=== PATIENT | female | born 1930 | race African-American/Black ===

== ENCOUNTER 2017-02-01 15:29 | Inpatient (IN) | payer MEDICARE ==
[~2017-02-01] VITALS: Ht 167.6 cm; Wt 101.1 kg
[2017-02-01 17:27] LABS: BASOPHILS 0.2 % (0-2); EOSINOPHILS 2.8 % (0-7); HEMATOCRIT 29.2 % (36.0-48.0); HEMOGLOBIN 8.5 g/dL (12-16); IMMATURE GRANULOCYTES 0.5 % (0-5); LYMPHOCYTES 13.9 % (15-50); MCH 27.9 pg (26.0-34.0); MCHC 29.1 g/dL (31.0-37.0); MCV 95.7 fL (80.0-100.0); MONOCYTES 5.6 % (2-11); PLATELET COUNT 349 10x3/uL (130-400); RBC 3.05 10x6/uL (4.00-5.40); RDW 15.4 % (11.5-14.5); WBC 9.8 10x3/uL (4.8-10.8)
[2017-02-01 17:45] LABS: ALBUMIN 2.2 g/dL (3.4-5.0); ANION GAP 8.3 mmol/L (8-16); BILIRUBIN - TOTAL 0.32 mg/dL (0.2-1.3); CALCIUM 8.4 mg/dL (8.5-10.1); CARBON DIOXIDE 31.4 mmol/L (21.0-32.0); CREATININE - SERUM 1.7 mg/dL (0.6-1.3); POTASSIUM - SERUM 3.7 mmol/L (3.5-5.1); PROTEIN - SERUM 7.2 g/dL (6.4-8.2)
[2017-02-01 19:00] VITALS: BP 165/57
--- NOTE | 2017-02-01 20:32 | NUR ---
PT ARRIVED TO ROOM VIA STRETCHER WITH DAUGHTERS X 3 AT BEDSIDE. PT IS ALERT AND ORIENTED, BEDFAST, HX OF CVA WITH LT HEMIPARESIS AND SWELLING, LT HAND CONTRACTURED. PT IS REQUESTING SOMETHING TO EAT. PT HAS HER OWN WHEELCHAIR AT BEDSIDE WITH HER OWN O2 TANK ON THE BACK OF HER WHEELCHAIR. I HAVE PAGED RENAL FOR CLARIFICATION OF ORDERS AND PTS FAMILY REQUEST FOR SOMETHING FOR ANXIETY. FAMILY STATES PT HAS HAD INCREASED ANXIETY FOR MONTHS BUT DOES NOT CURRENTLY TAKE ANYTHING. PT IS MILDLY SOB AT THIS TIME, AND THIS MAY BE CONTRIBUTING TO HER ANXIETY. WILL CONTINUE TO MONITOR CLOSELY. PT IS CURRENTLY ON HER LEFT SIDE, HOB 25 DEGREES, CALL LIGHT IN REACH, SIDE RAILS X 2, BED LOW.
[2017-02-01] MEDS ORDERED: ALBUTEROL2.5 MG/3 M INH (21:47)
[2017-02-02] VITALS (12 sets, daily range): BP systolic 119–160; BP diastolic 43–62; Ht 167.6 cm; Wt 101.1 kg
--- NOTE | 2017-02-02 05:39 | NUR ---
PT RESTING COMFORTABLY, ROUSABLE TO VERBAL STIMULI, CALL LIGHT IN REACH, SIDE RAILS X 2, HOB 20 DEGREES. CONTINUE TO MONITOR.
--- NOTE | 2017-02-02 07:25 | NUR ---
PT LAYING TO LEFT SIDE SLEEPING. RR EVEN AND UNLABORED. NO S/S DISTRESS NOTED WILL CONT TO MONITOR
[2017-02-02 09:02] LABS: APTT 31.4 SECONDS (22.8-39.4); INR 1.18 (0.85-1.17); PROTIME 14.9 SECONDS (11.6-15.0)
--- NOTE | 2017-02-02 10:45 | NUR ---
PT BACK FROM PROCEDURE. PT IS LETHARGIC BUT ARROUSES TO VOICE. DENIES ANY NEEDS OR PAIN. VS ARE WNL. WILL CONT TO MONITOR.
--- NOTE | 2017-02-02 12:31 | NUR ---
PT HAS ALLERGY TO CEPHALAXIN. ORDERED TO RECEIVE ROCEPHIN. PAGED JANENE RENAL ACTUARIAL INTERN.
--- NOTE | 2017-02-02 16:48 | NUR ---
PT ACCIDENTALLY PULLED OUT PIV. CATH TIP IS INTACT. I ATTEMPTED TO SITE X2 STICKS NO SUCCESS. PAMELA VAS ACCESS ALREADY GONE FOR THE DAY. WILL ASK JIGSAW OPERATOR TO ATTEMPT.
--- NOTE | 2017-02-02 17:35 | NUR ---
Patient Name: MIKAYLA GALEANA Admission Status: ER Accout number: [id number] Admission Date: 02-01-2017 : 1930 Admission Diagnosis: Attending: SAMMIE Current LOS: 1 Anticipated DC Date: 02-03-2017 Planned Disposition: Nursing Facility ANSHUL Cert Primary Insurance: MEDICARE A & B PLANNED EXTERNAL PROVIDER: [facility], [facility] MEDICAID BED Discharge Planning Comments: * Is the patient Alert and Oriented? Yes 0 * How many steps to enter\\exit or inside your home? NONE 0 * PCP [facility] 0 * Pharmacy [facility] 0 * Preadmission Environment Detention Custodial 0 * Facility Name [facility] 0 * ADLs Total Dependent 0 * Equipment Other Oxygen Wheelchair 0 * Other Equipment ALL MEDICAL EQUIPMENT PROVIDED BY FACILITY 0 * List name and contact numbers for known caregivers / representatives who currently or will assist patient after discharge: JASON SERVIN DTR/RISHI, MONICA PENAR, 0 * Community resources currently utilized None 0 * Please name any agencies selected above. NONE 0 * Additional services required to return to the preadmission environment? No 0 * Can the patient safely return to the preadmission environment? Yes 0 * Has this patient been hospitalized within the prior 30 days at any hospital? No [address] VIZCARRA WHO PROVIDED ORDER FOR DISCHARGE PLANNING WITH PROJECTED DISCHARGE OF 02-03-17. JANIS MET WITH PT'S DAUGHTER, ELLIS, IN ROOM. PT WAS IN PROCEDURE. ELLIS REPORTS PT IN [facility] AT [facility] FOR THE PAST 5 YEARS AND WILL RETURN THERE AT DISCHARGE. ELLIS REPORTS THAT HER SISTER HAS SOME ISSUES WITH THE FACILITY AND ASKED IF CM WAS FROM THE STATE COMPLAINT AGENCY. CM EXPLAINED CM ROLE AND EMPLOYMENT AT [employer]. CM ASKED IF CM COULD ASSIST WITH REPORTING ANY COMPLAINTS, ELLIS STATED CM WILL HAVE TO TALK TO GLORIA WHO PLANS TO BE HERE LATER TODAY. AFTER PT ARRIVED BACK IN ROOM, JANIS DISCUSSED DISCHARGE PLANNING WITH PT; PT PLANS TO RETURN "HOME" TO [facility]. PT REPORTS HAVING NO COMPLAINTS ABOUT HER CARE IN THE FACILITY. CM SPOKE TO KEEGAN, CLINICAL COORDINATOR FOR [facility] WHO CHECKED WITH FACILITY WHO WILL ACCEPT PT BACK AT DISCHARGE. JANIS RECEIVED CALL FROM GLORIA SERVIN DTR, WHO REPORTS THAT SHE HAS NO COMPLAINTS REGARDING PT'S CARE AT [facility]. CM OFFERED CLINICAL LIAISON'S NUMBER FOR [facility], DECLINED BY GLORIA. GLORIA DID ACCEPT CM'S NUMBER. GLORIA IS NOT MOVING PT AND PLANS FOR PT TO RETURN TO [facility] AT DISCHARGE. FOR DISCHARGE, NURSE REPORT TO BE CALLED TO [facility], ; FAX DISCHARGE INFORMATION TO [facility] AT [phone]. PT TO TRANSPORT VIA AMBULANCE IF UNABLE TO SIT SAFETLY ERECT IN WHEEL CHAIR VAN FOR THE TWO HOUR TRIP BACK TO THE [facility]. Operations Management Professionals: Mauricio Al
--- NOTE | 2017-02-02 18:10 | NUR ---
PT SITTING UP IN BED SLEEPING NO S/S DISTRESS RR EVEN AND UNLABORED.
--- NOTE | 2017-02-02 22:21 | NUR ---
PT LYING IN BED, AWAKE, ALERT, ORIENTED, DENIES ANY NEEDS. PT HAS JUST RECEIVED A BED BATH, LINEN CHANGE, AND GOWN CHANGE. PT IS IN NO ACUTE DISTRESS AND RESTING COMFORTABLY. CONTINUE TO MONITOR CLOSELY.
[2017-02-03] VITALS: BP 111/37
[2017-02-03 04:00] VITALS: BP 133/45
--- NOTE | 2017-02-03 04:36 | NUR ---
PT HAS C/O GENERALIZED ABDOMINAL PAIN, MOSTLY R/T CONSTIPATION. PT IS REQUESTING TX FOR THIS ABDOMINAL PAIN. PT HAS A HX OF BOWEL BLOCKAGE AND CHRONIC CONSTIPATION. WILL DISCUSS WITH DAYSHIFT NURSE FOR FURTHER ORDERS. PT CURRENTLY LYING IN BED, RESTING COMFORTABLY, EYES CLOSED, RESPIRATIONS EVEN AND UNLABORED. CONTINUE TO MONITOR CLOSELY.
[2017-02-03 05:23] LABS: BASOPHILS 0.1 % (0-2); EOSINOPHILS 2.8 % (0-7); HEMATOCRIT 25.3 % (36.0-48.0); IMMATURE GRANULOCYTES 0.4 % (0-5); LYMPHOCYTES 14.2 % (15-50); MCH 28.4 pg (26.0-34.0); MCHC 29.6 g/dL (31.0-37.0); MCV 95.8 fL (80.0-100.0); MEAN PLATELET VOLUME 8.7 fL (7.4-10.4); MONOCYTES 7.2 % (2-11); NEUTROPHILS 75.3 % (40-80); PLATELET COUNT 299 10x3/uL (130-400); RBC 2.64 10x6/uL (4.00-5.40); RDW 15.4 % (11.5-14.5); WBC 7.8 10x3/uL (4.8-10.8)
[2017-02-03 05:24] LABS: HEMOGLOBIN 7.5 g/dL (12-16)
[2017-02-03 05:31] LABS: ANION GAP 6.5 mmol/L (8-16); CALCIUM 7.6 mg/dL (8.5-10.1); CARBON DIOXIDE 33.9 mmol/L (21.0-32.0); CREATININE - SERUM 1.8 mg/dL (0.6-1.3); MAGNESIUM - SERUM 1.6 mg/dL (1.8-2.4); PHOSPHOROUS 3.2 mg/dL (2.5-4.9); POTASSIUM - SERUM 3.4 mmol/L (3.5-5.1)
--- NOTE | 2017-02-03 07:08 | NUR ---
PT SITTING UP IN BED RECEIVING BREATHING TX, DENIES ANY NEEDS AT THIS TIME WILL CONT TO MONITOR
[2017-02-03 08:05] LABS: % SATURATION 22 % (15-55); IRON 27 ug/dl (35-150); TOTAL IRON BIND CAPACITY 120 ug/dl (260-445); UNSAT IRON BIND CAPACITY 93 ug/dl (150-375)
[2017-02-03 08:20] VITALS: BP 129/48
--- NOTE | 2017-02-03 08:42 | NUR ---
BLADDER SCANNER ON THE FLOOR IS AND WE DO NOT HAVE DEGREASING SOLUTION RECLAIMER. CALLED [employer] TO ASK FOR ANOTHER DEGREASING SOLUTION RECLAIMER AND IF NOT THEN WE NEED ANOTHER SCANNER. THEY ARE SUPPOSED TO CALL BACK. IN ORDER TO COMPLETE UA AND CULTURE WE NEED BLADDER SCANNER TO SEE IF HILL IS NEEDED.
--- NOTE | 2017-02-03 08:44 | NUR ---
PAMELA VAS NURSE SITED PT TO R UPPER FA 20 G X1 STICK WITH ULTRASOUND MACHINE ASSIST. DSNG DRY INTACT SWAB CAPS IN USE. INFUSING WITH NO PROBLEMS.
--- NOTE | 2017-02-03 09:49 | NUR ---
SPOKE WITH THE HOUSE SUP RAFAEL ABOUT NOT HAVING BLADDER SCANNER. ELADIO FROM [employer] SAID THAT WOMENS AND REHAB'S WERE BROKEN AND THEY HAD NO IRONER SOCK. RAFAEL SAID TO CALL ER AND SEE IF THEY HAD ONE. THEY SAID THAT IT IS MISSING AT THE MOMENT THEY WOULD LOOK FOR IT AND GET BACK TO ME.
[2017-02-03 12:35] VITALS: BP 129/52
--- NOTE | 2017-02-03 13:47 | NUR ---
16 F HILL WAS PLACED BY ULYSSES BUSH STERILE TECHNIQUE INITIATED. 10 CC STERILE FLUID INSTILLED INTO BALLOON. IMMEDIATE URINE RETURN. URINE SPECIMEN COLLECTED FROM TUBE. PT TOLERATED WELL.
[2017-02-03 15:05] LABS: APPEARANCE CLEAR (CLEAR); COLOR YELLOW (YELLOW)
[2017-02-03 15:06] VITALS: BP 141/51
[2017-02-03 15:06] LABS: BILIRUBIN NEGATIVE (NEGATIVE); GLUCOSE NEGATIVE (NEGATIVE); KETONE NEGATIVE (NEGATIVE); LEUKOCYTE ESTERASE 1+ (NEGATIVE); NITRITE NEGATIVE (NEGATIVE); PROTEIN 1+ mg/dL (NEGATIVE); SPECIFIC GRAVITY 1.015 (1.005-1.020); UROBILINOGEN NORMAL (NORMAL)
[2017-02-03 15:07] LABS: RED CELLS - URINE 0-5 /hpf (0-5); WHITE CELLS - URINE 0-5 /hpf (0-5)
[2017-02-03 15:08] LABS: BACTERIA FEW /hpf (NONE SEEN); EPITHELIAL CELLS 0-5 /hpf (0-5)
--- NOTE | 2017-02-03 16:21 | NUR ---
Patient Name: MIKAYLA GALEANA Encounter No: [id number] : 1930 Primary Insurance: MEDICARE A & B Anticipated DC Date: 02-03-2017 Planned Disposition: Nursing Facility [facility] Cert External Planned Provider: [facility], LONGTERM CARE MEDICAID BED DCP follow-up note: CM RECEIVED CALL FROM SHENA SERVIN, DAUGHTER, WHO ASKED TO SEE CM IN ROOM. CM MET WITH PT AND 4 OF HER CHILDREN. SHENA REPORTS SHE HAS SOME ISSUES WITH [facility], BUT CHOICES FOR MOVING PT IN [place] ARE VERY LIMITED. THEY ARE THINKING OF CALLING STATE BUT REPORT THAT IN THE PAST, WHEN STATE SHOWS UP, THE DETENTION GETS THEIR ACT TOGETHER AND NOTHING HAPPENS. CM DISCUSSED MOVING PT, FAMILY IS NOT WILLING TO MOVE PT AT THIS TIME, REPORTS PLAN TO RETURN TO [facility] AT DISCHARGE. CM PROVIDED SHENA WITH CLINICAL LIAISON KEEGAN CANNON'S CARD FOR THE FACILITY, ENCOURAGED HER TO REPORT COMPLAINTS TO OFFICE OF LONGTERM CARE AND IF THEY DECIDE NOT TO, TO AT LEAST TALK TO KEEGAN TO SEE IF ANYTHING CAN BE DONE FROM THE FACILITY TO MAKE THINGS BETTER FOR THE PT. FAMILY THANKED FOR ASSISTANCE, IMPORTANT MESSAGE FROM MEDICARE PROVIDED AND EXPLAINED. FOR DISCHARGE, NURSE REPORT TO BE CALLED TO [facility], ; FAX DISCHARGE INFORMATION TO [facility] AT [phone]. PT TO TRANSPORT VIA AMBULANCE IF UNABLE TO SIT SAFETLY ERECT IN WHEEL CHAIR VAN FOR THE TWO HOUR TRIP BACK TO THE DETENTION. Billet Header: Mauricio Al
--- NOTE | 2017-02-03 17:15 | NUR ---
PT CO SOB AND REQUESTING BREATHING TX. NEXT BREATHING TX ISNT UNTIL 1900. PT FAMILY MEMBER IS SAYING PT "WILL UNLESS SHE RECEIVES TX NOW" HER O2 SATS ARE 99% RR ARE UNLABORED. 1730- CALLED TO PT ROOM AGAIN STILL CO SOB. RR ARE NOW 28 USE OF ACCESSORY MUSCLES AND O2 SATS ARE STILL 99%. PAGED DR BELLMAN CAPTAIN DR GANN FOR PRN BREATHING TX. WILL ORDER. AND PAGE RESPIRATORY AGAIN
--- NOTE | 2017-02-03 17:43 | NUR ---
PT SON IS IN THE ROOM VERY ANGRY. DEMANDING FOR PT TO HAVE BREATHING TREATMENT "NOW" EXPLAINED TO PT AND PT SON THAT WE HAD TO CALL THE DR TO GET ADDITIONAL BREATHING TX ORDER. AND WE ARE JUST WAITING ON PHARM TO VERIFY AND FOR RESPIRATORY TO GIVE. PT SON CALLED HIS SISTER (RISHI). GLORIA DAUGHTER CALLED HOSPITAL AND SAID THAT HER BROTHER SAID "MY MOTHER IS VERY SOB AND IS DYING BECAUSE THEY WONT GIVE HER A BREATHING TX". EXPLAINED TO DAUGHTER THE SITUATION. SHE VERBALIZED UNDERSTANDING. SHE SAID TO CALL HER IF WE HAD ANY PROBLEM.
--- NOTE | 2017-02-03 18:36 | NUR ---
PT SITTING UP IN BED DENIES ANY NEEDS WATCHING TV
--- NOTE | 2017-02-03 19:15 | NUR ---
RECEIVED REPORT, WILL ASSUME CARE OF PT, PT DENIES ANY NEEDS, BED IS LOW, SRX2, WILL CONTINUE PLAN OF CARE
[2017-02-03 20:00] VITALS: BP 129/45
[2017-02-04 04:00] VITALS: BP 144/45
--- NOTE | 2017-02-04 04:20 | NUR ---
ASSESSMENT COMPLETE, SEE FLOWSHEET, PT SLEEPING, BED IS LOW, SRX2, CALL LIGHT IN REACH, MAIL CARRIER TECHNICIAN GAVE TOTAL BEDBATH/LINEN CHANGE, WILL CONTINUE PLAN OF CARE
[2017-02-04 05:27] LABS: BASOPHILS 0.1 % (0-2); HEMATOCRIT 24.6 % (36.0-48.0); IMMATURE GRANULOCYTES 0.4 % (0-5); LYMPHOCYTES 16.8 % (15-50); MCH 28.2 pg (26.0-34.0); MCHC 29.7 g/dL (31.0-37.0); MEAN PLATELET VOLUME 9.1 fL (7.4-10.4); NEUTROPHILS 71.7 % (40-80); PLATELET COUNT 309 10x3/uL (130-400); RBC 2.59 10x6/uL (4.00-5.40); RDW 15.4 % (11.5-14.5); WBC 7.7 10x3/uL (4.8-10.8)
[2017-02-04 05:28] LABS: HEMOGLOBIN 7.3 g/dL (12-16)
[2017-02-04 05:48] LABS: ALBUMIN 1.7 g/dL (3.4-5.0); BILIRUBIN - TOTAL 0.2 mg/dL (0.2-1.3); CALCIUM 7.8 mg/dL (8.5-10.1); CARBON DIOXIDE 33.7 mmol/L (21.0-32.0); CREATININE - SERUM 1.7 mg/dL (0.6-1.3); MAGNESIUM - SERUM 1.9 mg/dL (1.8-2.4); PHOSPHOROUS 2.4 mg/dL (2.5-4.9); POTASSIUM - SERUM 3.7 mmol/L (3.5-5.1)
--- NOTE | 2017-02-04 07:12 | NUR ---
PT SITTING UP IN BED SLEEPING ARROUSES EASILY. DENIES NEEDS WILL CONT TO MONITOR
[2017-02-04 08:04] VITALS: BP 126/44
[2017-02-04 08:16] LABS: FOLATE (FOLIC ACID) - SERUM 10.7 ng/mL (>3.0)
--- NOTE | 2017-02-04 10:26 | NUR ---
PT ORDERED TO RECEIVE 2 UNITS OF PACKED RED BLOOD CELLS TODAY. WENT IN TO GET CONSENT SIGNED. PLACED ON THE CHART. PT PIV IN R UPPER FA HAS INFILTRATED. DC WITH CATH TIP INTACT. CALLED ER, SPOKE WITH RICHAR TO SEE IF SOMEONE COULD TRY AN IV, THEY ARE SENDING SOMEONE.
--- NOTE | 2017-02-04 10:50 | NUR ---
ER NURSE SITED PT TO R AC 18G X1 STICK. IV IRON INFUSING WITHOUT ANY PROBLEMS, ONCE IRON IS FINISHED WILL GO START FIRST UNIT OF PRBC
[2017-02-04 12:00] VITALS: BP 121/48
--- NOTE | 2017-02-04 14:00 | NUR ---
FIRST UNIT OF PRBC READY TO BE INFUSED. ORDER OBTAINED AND CONSENT IS SIGNED AND PLACED ON CHART. PRE TRANSFUSION VS ARE WNL WITH NORMAL LIMITS OF PT. FIRST UNIT OF PRBC STARTED TO TRANSFUSE TO R UPPER ARM 18G PIV WITH NO PROBLEMS. NO CURRENT S/S TRANSFUSION REACTION. WILL CONT TO CLOSELY MONITOR PT
--- NOTE | 2017-02-04 14:26 | NUR ---
1410- 10 MINS INTO PT FIRST PRBC TRANSFUSION. PIV INFILTRATED AGAIN. DC WITH CATH TIP INTACT. ATTEMPTED TO SITE PT TO R FA 20G X1 STICK, BLOOD RETURN WHEN FLUSHED VEIN BLEW. CALLED ICU AND SPOKE WITH GENE HE IS COMING TO ATTEMPT TO RESITE.
--- NOTE | 2017-02-04 14:47 | NUR ---
GENE RN ATTEMPTED TO STICK PT X2 TIMES NO SUCCESS. PAGING DR GANN CLEANER WINDOW TO SEE WHAT WE NEED TO DO ABOUT LINE.
--- NOTE | 2017-02-04 15:12 | NUR ---
SPOKE WITH DR VELOZ ABOUT NOT BEING ABLE TO GET LINE IN PT. HE SAID TO CONSULT SURGERY FOR CVL PLACEMENT. DONE.
--- NOTE | 2017-02-04 15:31 | NUR ---
RETURNED PRBC TO THE BLOOD BANK. BLOOD WILL BE OLD BY THE TIME CVL GETS PLACED.
[2017-02-04 16:00] VITALS: BP 139/61
--- NOTE | 2017-02-04 17:16 | NUR ---
DR BEDOYA PLACED CVL R IJ AT BEDSIDE. STERILE TECHNIQUE INITIATED. DRESSING PLACED AND ADHERED TO SKIN SWAB CAPS IN USE. STAT CHEST XR ORDERED.
--- NOTE | 2017-02-04 17:41 | NUR ---
PT C/O SOB FROM HAVING TO LAY DOWN DURING CVL PLACEMENT. TRIED EXPLAINING TO PT THAT HER 02 SATS ARE 99-100% ON 4L NC, HER RR ARE 18 APPEARS TO BE IN NO S/S DISTRESS. SHE HAS PLEURAL EFFUSION THAT IS MOST LIKELY THE CULPRIT. PT REQUESTING BREATHING TX. I HAVE SPOKEN WITH MICAELA [facility] THERAPIST AND HE IS ON HIS WAY CHRISTOPHER TO BRING IT TO PT. AWAITING RESULTS OF STAT CHEST XRAY TO START PRBC. PT DENIES ANY OTHER NEEDS
--- NOTE | 2017-02-04 18:49 | NUR ---
CVL IS IN PLACE AND ABLE TO HANG FIRST UNIT OF PRBC NOW. FIRST UNIT STARTED. PRE TRANSFUSION VS ARE WNL PRBC INFUSING TO R IJ CVL WITHOUT ANY ISSUES. WILL CONT TO CLOSELY MONITOR
--- NOTE | 2017-02-04 19:11 | NUR ---
PT PRBC STILL INFUSING TO R IJ CVL WITHOUT ANY PROBLEMS. NO S/S DISTRESS FROM PT OR S/S TRANSFUSION REACTION. VS ARE WNL. GAVE REPORT TO JANINE CHEESE CUTTER NURSE.
--- NOTE | 2017-02-04 19:45 | NUR ---
RESTLESS. CALLING OUT WITH SOME CONFUSION. NEEDING FREQUENT REORIENTATION TO SITUATION. CURRENTLY RECIEVING UNIT #1 OF 2 PRBCS TO BE GIVEN. VSS AND BEING MONITORED. BLOOD INFUSING TO RIGHT IJ CVL. O2 @ 4L/NC WITH RESPS EVEN/NONLABORED. SEE ASSESSMENT. CPOC.
[2017-02-04 20:00] VITALS: BP 146/59
--- NOTE | 2017-02-04 21:30 | NUR ---
COMPLETTION OF 1ST UNIT OF BLOOD AT 2114. BEDTIME MEDS GIVEN. FSBS 88, PROVIDED PT WITH SNACK AND MILK. WILL MONITOR.
[2017-02-05 02:00] VITALS: BP 139/46
--- NOTE | 2017-02-05 05:20 | NUR ---
PT RECIEVED BOTH ORDERED UNITS OF PRBCS THIS SHIFT. SHE SLEPT WELL WHILE 2ND UNIT ADMINISTERED. NO FURTHER CALLING OUT OR C/O BEING SOB AND WANTING EXTRA BREATHING TREATMENTS. MONITOR AND CPOC.
[2017-02-05 06:16] LABS: BASOPHILS 0.1 % (0-2); EOSINOPHILS 2.5 % (0-7); IMMATURE GRANULOCYTES 0.6 % (0-5); LYMPHOCYTES 11.9 % (15-50); MCH 29.1 pg (26.0-34.0); MCHC 31.3 g/dL (31.0-37.0); MONOCYTES 6.2 % (2-11); NEUTROPHILS 78.7 % (40-80); PLATELET COUNT 283 10x3/uL (130-400); RDW 15.1 % (11.5-14.5)
[2017-02-05 06:18] LABS: HEMATOCRIT 31.3 % (36.0-48.0); HEMOGLOBIN 9.8 g/dL (12-16); MCV 92.9 fL (80.0-100.0); RBC 3.37 10x6/uL (4.00-5.40); WBC 10.2 10x3/uL (4.8-10.8)
[2017-02-05 06:29] LABS: ANION GAP 8.9 mmol/L (8-16); CARBON DIOXIDE 32.9 mmol/L (21.0-32.0); CREATININE - SERUM 1.7 mg/dL (0.6-1.3); POTASSIUM - SERUM 3.8 mmol/L (3.5-5.1)
--- NOTE | 2017-02-05 07:18 | NUR ---
AM ROUNDS- PT IN BED, WITH EYES CLOSED, BED LOW AND WHEELS LOCKED. BEDSIDE RAILS X2, CALL LIGHT IN REACH, TELEMETRY SHOWING SR 81. PT ON 4L NC, RT IJ INFUSING AT 40CC/H. NAD NOTED, WILL CONTINUE TO MONITOR.
[2017-02-05 08:19] VITALS: BP 144/46
--- NOTE | 2017-02-05 08:43 | NUR ---
AM MEDS GIVEN, PT HAD NO TROUBLE SWALLOWING. PT IN BED, DENIES ANY NEEDS AT THIS TIME. CALL LIGHT IN REACH, NAD NOTED, WILL CONTINUE TO MONTIOR.
--- NOTE | 2017-02-05 10:53 | NUR ---
LINEN CHANGE PER CHANGE ANALYST. PT DENIES ANY NEEDS AT THIS TIME. CALL LIGHT IN REACH, NAD NOTED, WILL CONTINUE TO MONITOR.
--- NOTE | 2017-02-05 11:00 | NUR ---
BLOOD SUGAR OF 183, 2UNITS OF HUMULIN GIVEN PER S/S TO RT ARM. PT DENIES ANY NEEDS AT THIS TIME, CALL LIGHT IN REACH, NAD NOTED, WILL CONTINUE TO MONITOR.
[2017-02-05 11:31] VITALS: BP 130/49
--- NOTE | 2017-02-05 14:00 | NUR ---
PT'S FAMILY ASKING IF PT CAN BE TRANSFERED TO CHAIR, WILL [facility] AND ASK IF THEY CAN TRANSFER PT. 1415- TALKED TO MONROE FROM PHYSICAL THERAPY INFORMED THAT PT WANTS TO BE TRANSFER PT TO CHAIR. MONROE FROM PHYSICAL THERAPY STATED THAT PT IS A MATT LIFT AND THAT THEY DONT DO MATT LIFTS HERE. MONROE STATED THAT HE WOULD CHECK WITH [facility] TOMORROW TO SEE IF THEY CAN DO SOMETHING ELSE FOR PT. WILL NOTIFY PT AND FAMILY.
[2017-02-05 15:12] VITALS: BP 128/54
--- NOTE | 2017-02-05 16:07 | NUR ---
BLOOD SUGAR OF 140, NO COVERAGE NEEDED PER S/S. PT IN BED, REQUESTED A CUP OF ICE WATER. WILL PROVIDED PT WITH ICE WATER, NAD NOTED, CALL LIGHT IN REACH, WILL CONTINUE TO MONITOR.
--- NOTE | 2017-02-05 19:30 | NUR ---
RECEIVED AWAKE/ALERT AND RESTING IN BED. DENIES PAIN OR DISCOMFORT. SR PER TELEMETRY. RIGHT IJTL WITH D5W @ 40ML/HR INFUSING. ON LOVENOX FOR DVT PREVENTION. O2 @ 4L/NC WITH NONLABORED RESPIRATIONS. HILL PATENT TO BEDSIDE DRAIN BAG. OLD CVA WITH LEFT SIDED WEAKNESS REQUIRING MAX ASSIST WITH ADLS AND MOBILITY. SEE ASSESSMENT, MONITOR AND CPOC.
[2017-02-06] VITALS: BP 147/46
[2017-02-06 04:00] VITALS: BP 132/47
--- NOTE | 2017-02-06 04:58 | NUR ---
RESTING WITH EYES CLOSED. RESPS EVEN/NONLABORED. IVF INFUSING TO RIGHT IJTL. HILL PATENT TO BEDSIDE DRAIN BAG. MONITOR AND CPOC.
[2017-02-06 05:30] LABS: BASOPHILS 0.1 % (0-2); EOSINOPHILS 2.9 % (0-7); HEMATOCRIT 32.8 % (36.0-48.0); HEMOGLOBIN 10.1 g/dL (12-16); IMMATURE GRANULOCYTES 0.8 % (0-5); MCH 28.5 pg (26.0-34.0); MCHC 30.8 g/dL (31.0-37.0); MCV 92.7 fL (80.0-100.0); MEAN PLATELET VOLUME 8.9 fL (7.4-10.4); NEUTROPHILS 75.2 % (40-80); PLATELET COUNT 267 10x3/uL (130-400); RBC 3.54 10x6/uL (4.00-5.40); RDW 15.1 % (11.5-14.5); WBC 8.6 10x3/uL (4.8-10.8)
[2017-02-06 05:42] LABS: ANION GAP 6.6 mmol/L (8-16); CALCIUM 7.9 mg/dL (8.5-10.1); CREATININE - SERUM 1.6 mg/dL (0.6-1.3); POTASSIUM - SERUM 3.6 mmol/L (3.5-5.1)
--- NOTE | 2017-02-06 07:14 | NUR ---
AM ROUNDS- PT IN BED, REQUESTED HER DENTURES TO BE CLEANED AND GIVEN TO HER. PT DENIES ANY OTHER NEEDS AT THIS TIME. CALL LIGHT IN REACH, NAD NOTED, WILL CONTINUE TO MONITOR.
[2017-02-06 07:55] VITALS: BP 121/49
--- NOTE | 2017-02-06 08:04 | NUR ---
AM MEDS GIVEN AND A DOSE OF MIRALAX. PT IN BED, EATING BREAKFAST. DENIES ANY NEEDS AT THIS TIME. CALL LIGHT IN REACH, BED LOW AND WHEELS LOCKED, NAD NOTED, WILL CONTINUE TO MONITOR.
--- NOTE | 2017-02-06 11:28 | NUR ---
BLOOD SUGAR OF 126, NO COVERAGE NEEDED PER S/S. PT IN BED, STATES THAT SHE WANTS A BREATHING TREATMENT. WILL CALL [facility] AND INFORM THEM ABOUT PT'S REQUES. CALL LIGHT IN REACH, NAD NOTED, WILL CONTINUE TO MONITOR.
[2017-02-06 12:50] VITALS: BP 125/68
--- NOTE | 2017-02-06 13:21 | NUR ---
Nutrition follow-up: Diet: ADA consistent CHO PO intake 75-100% of meals Labs reviewed WT: 222# +BM RDN following.
--- NOTE | 2017-02-06 13:43 | NUR ---
GINETTE Mcclellan [phone] [place] [phone] ALEKSANDRA. WANT TO BE CONTACTED BY DOCTOR MAKING ROUNDS IN THE AM.
[2017-02-06 16:27] VITALS: BP 131/55
--- NOTE | 2017-02-06 19:25 | NUR ---
RECIEVED SHIFT REPORT. PT IS LYING IN BED. ALERT AND ORIENTED AND ABLE TO VERBALIZE NEEDS. IV IS PATENT AND FLUIDS ARE RUNNING PER ORDER. O2 @ 4 PER NASAL CANNULA. HILL IS DRAINING URINE BY GRAVITY. PT REQUIRES ASSISTANCE TURNING IN BED FOR COMFORT AND SKIN CARE. PT DENIES ANY PAIN AT THIS TIME. ISOLATION PRECAUTIONS IN PLACE. NO NEEDS ARE VERBALIZED AT THIS TIME. WILL CONTINUE TO MONITOR. SIDE RAILS ARE UP X 2. BED IS IN LOWEST POSITION. CALL LIGHT IS WITHIN REACH.
--- NOTE | 2017-02-06 21:19 | NUR ---
SHIFT ASSESSMENT COMPLETED. NIGHT MEDS GIVEN WITH NO PROBLEMS. PT RECIEVED NO INSULIN PER SLIDING SCALE FOR XYGA=761. PT REQUESTING PRN TRAZADONE FOR SLEEP. ADMINISTERED PER ORDER. NO FURTHER NEEDS VOICED AT THIS TIME. WILL MONITOR. SIDE RAILS X 2. BED LOW. CALL LIGHT IN REACH.
[2017-02-06 23:00] VITALS: BP 135/43
[2017-02-07 01:51] VITALS: BP 123/42
--- NOTE | 2017-02-07 03:27 | NUR ---
PT RESTING IN BED WITH NO DISTRESS. RESPIRATIONS ARE EVEN AND UNLABORED. SIDE RAILS X 2. BED IS LOW. CALL LIGHT IN REACH.
[2017-02-07 04:57] LABS: BASOPHILS 0.3 % (0-2); EOSINOPHILS 2.5 % (0-7); HEMATOCRIT 30.4 % (36.0-48.0); HEMOGLOBIN 9.3 g/dL (12-16); IMMATURE GRANULOCYTES 0.6 % (0-5); MCH 28.8 pg (26.0-34.0); MCHC 30.6 g/dL (31.0-37.0); MCV 94.1 fL (80.0-100.0); MEAN PLATELET VOLUME 9.3 fL (7.4-10.4); MONOCYTES 6.2 % (2-11); NEUTROPHILS 75.4 % (40-80); PLATELET COUNT 285 10x3/uL (130-400); RBC 3.23 10x6/uL (4.00-5.40); RDW 14.9 % (11.5-14.5); WBC 7.7 10x3/uL (4.8-10.8)
[2017-02-07 05:14] LABS: ANION GAP 4.5 mmol/L (8-16); CALCIUM 7.6 mg/dL (8.5-10.1); CARBON DIOXIDE 38.7 mmol/L (21.0-32.0); CREATININE - SERUM 1.6 mg/dL (0.6-1.3); MAGNESIUM - SERUM 1.3 mg/dL (1.8-2.4); PHOSPHOROUS 2.4 mg/dL (2.5-4.9); POTASSIUM - SERUM 3.2 mmol/L (3.5-5.1)
[2017-02-07 05:36] VITALS: BP 126/48
--- NOTE | 2017-02-07 07:59 | NUR ---
AM ROUNDING DONE WITH PATIENT IN CONTACT ISOLATION. RIGHT IJ SEEN WITH D5W INFUSING AT 40 CC/HR. HILL CATH PATENT WITH CLEAR YELLOW URINE SEEN TO BAG. ON HEART MONITOR SHOWING SR, HR 87. PATIENT IS A DNR CODE STATUS. ON 4L PER NC. BED ALARM IS SET. WILL CPOC.
[2017-02-07 08:34] VITALS: BP 129/48
--- NOTE | 2017-02-07 10:17 | EC ---
PATIENT:MIKAYLA GALEANA DATE OF SERVICE: 02/03/17 SEX: F MEDICAL RECORD: [id number] DATE OF : [birth year] LOCATION:D.M2 D.210 AGE OF PATIENT: 86 ADMISSION DATE: 02/01/17 REFERRING PHYSICIAN: INTERPRETING PHYSICIAN: TI DOHERTY MD ECHOCARDIOGRAM REPORT ECHO CHARGES 4 ECHO COMPLETE CLINICAL DIAGNOSIS: SOB/EDEMA ECHOCARDIOGRAPHIC MEASUREMENTS (adult normal given) AC root (d.<3.7cm) 3.3 LV Septum d (<1.2 cm> 1.5 Valve Excursion 1.8 LV Septum (systole) 1.9 Left Atria (s.<4.0cm> 3.6 LVPW d(<1.2cm) 1.6 RV (d.<2.3cm) 3.8 LVPW (sytole) 2.0 LV diastole(<5.6CM) 4.8 MV E-F(>70mm/sec) LV systole 2.7 LVOT Diameter 1.7 MV exc.(>10mm) 1.9 Est.ejection fraction (50-75%) Pericardial Effusion N DOPPLER: LVIT A 73.0 E 105 LA RVSP 20 LVOT 102 AOP1/2T Asc. Ao 165 RVOT 90 RA PA 118 AV Gradient Peak 10.95 AV Mean 5.29 AV Area 1.5 MV Gradient Peak 4.59 MV Mean 1.69 MV Area COMMENTS: PA IS 118 CM/SEC OR 3.27 MMHG RVSP 20 [facility] Information Manager: Marvin VO Nurse Private Duty:1 Dr. Doherty TAPE# PACS TWO-DIMENSIONAL ECHOCARDIOGRAM WITH DOPPLER 1. Left ventricular chamber size is within normal limits. Left ventricular systolic function is normal. Overall ejection fraction is estimated at 55 percent. 2. Left atrium, right atrium, and right ventricular chamber sizes are within normal limits. 3. Valvular structures have normal structure and motion. 4. Doppler interrogation reveals mild mitral regurgitation, trace tricuspid regurgitation; no other valvular insufficiency or stenosis. Pulmonary artery systolic pressure is normal estimated at 20 millimeters of mercury. ECHOCARDIOGRAM REPORT [id number] MIKAYLA GALEANA 5. No evidence of pericardial effusion or left ventricular thrombus. TI DOHERTY MD at 1017 CC: [id number] DICTATION DATE: 02/04/17 1200 VICE PRESIDENT OF PROCUREMENT: BOBBY 02/06/17 1119 ADM IN [facility] [address] [phone]
[2017-02-07] MEDS ORDERED: FUROSEMIDE20 MG PO (11:12)
[2017-02-07 12:24] VITALS: BP 147/55
--- NOTE | 2017-02-07 12:36 | NUR ---
Patient Name: MIKAYLA GALEANA Encounter No: [id number] : 1930 Primary Insurance: MEDICARE A & B Anticipated DC Date: 02-07-2017 Planned Disposition: Nursing Facility AN[facility]UL Cert External Planned Provider: [facility], [facility] MEDICAID BED DCP follow-up note: CM RECEIVED DISCHARGE ORDER, RECEIVED CALL FROM PT'S DAUGHTER, CHRISTINA, WHO IS IN AGREEMENT WITH DISCHARGE BACK TO [facility], ASKED IF PT WAS ON LASIX. CM VERIFIED MEDICATIONS FOR DISCHARGE, CALLED CHRISTINA AT HOME WHO ADVISED THAT PT'S OTHER DAUGHTER, JASON, IS IN THE ROOM WITH PT. CM SPOKE TO JASON AND PT IN ROOM, NOTIFIED OF DISCHARGE MEDICATIONS; ALL IN AGREEMENT WITH DISCHARGE BACK TO [facility] TODAY. CM FAXED DISCHARGE INFORMATION TO [facility] AT [phone]. NURSE REPORT TO BE CALLED TO [facility], ; . PT TO TRANSPORT VIA AMBULANCE. Mail Processor: Mauricio Al
--- NOTE | 2017-02-07 12:54 | NUR ---
CALLED REPORT TO SHEREEN CARY TO [facility]. PATIENT WILL BE DISCHARGED VIA AMBULANCE AND PORTABLE OXYGEN.
--- NOTE | 2017-02-07 13:35 | NUR ---
LAST OF IV POTASSIUM HAS INFUSED. RIGHT IJ CVL HAS BEEN FLUSHED WELL WITH 10 CC OF NORMAL SALINE TO EACH PORT. WILL REMOVE CVL WHEN AMBULANCE IS CALLED AND WILL REMOVE HILL CATH AT THAT TIME. AWAITING FAMILY TO COME BACK ONTO FLOOR SO DISCHARGE INSTRUCTIONS MAY BE GIVEN TO PATIENT.
--- NOTE | 2017-02-07 14:14 | NUR ---
1404-CALLED DREW AT [facility] AND WAS TOLD THAT IT WOULD BE A BIT BEFORE PICKUP. I ASKED THAT SHE GIVE ME A COURTESY CALL I NEEDED TO TAKE OUT HER HILL CATH AND CENTRAL LINE. SHE SAID SHE WOULD. THIS IS RELAYED TO THE FAMILY.
--- NOTE | 2017-02-07 14:46 | NUR ---
HILL CATH REMOVED PAST BULB DEFLATION. CLEANED AGAIN FROM INCONT. OF STOOL.
--- NOTE | 2017-02-07 15:53 | NUR ---
CALLED DREW AT [facility] AGAIN. WAS TOLD THAT "WE ARE SO BUSY WITH EMERGENCY CALLS THAT IT MAY BE CLOSE TO 6". I CALLED [facility] TO NOTIFY THEM OF THE DELAY, I SPOKE WITH NOVA.
--- NOTE | 2017-02-07 18:18 | NUR ---
1814-RIGHT IJ CVL REMOVED WITH CATH TIP INTACT. PRESSURE HELD WITH CLEAN 2 X 2 AND OPISTE DRESSING PLACED. INSTRUCTED TO PATIENT TO LAY FLAT X 15 MIN. WILL FOLLOW.
--- NOTE | 2017-02-07 18:46 | NUR ---
CLEANED UP AGAIN FROM INCONT OF URINE AND STOOL.
--- NOTE | 2017-02-07 18:53 | NUR ---
PATIENT IS RECEIVED AN UPDRAFT TREATMENT AT THIS TIME. AMBULANCE IS HERE.
--- NOTE | 2017-02-07 18:53 | NUR ---
VERBAL AND WRITTEN DISCHARGES ARE GIVEN TO PATIENT. SHE REPORTS THAT SHE CAN NOT SIGN HER PAPERWORK. DISCHARGED VIA AMBULANCE AND STRETCHER.
--- NOTE | 2017-02-08 13:41 | NUR ---
Patient Name: MIKAYLA GALEANA Encounter No: [id number] : 1930 Primary Insurance: MEDICARE A & B Anticipated DC Date: 02-07-2017 Planned Disposition: Nursing Facility [facility] Cert External Planned Provider: [facility] LONG TERM C[facility] MEDICAID BED DCP follow-up note: CM RECEIVED CALL FROM PT'S DAUGHTER, SHENA SERVIN, WHO REPORTS THAT THE HALFWAY IS ONLY GIVING PT TWO MEDICATIONS LISTED ON THE DISCHARGE MEDICATION LIST WELL INSULIN THAT IS NOT. PT WAS NOT CONTINUED ON HER NORMAL DAILY MEDICATIONS AT THE HALFWAY. CM APOLOGIZED AND INFORMED SHENA THAT CM WILL CALL THE FACILITY TO SEE IF CM CAN ASSIST IN FIXING THE SITUATION. CM CALLED KEEGAN, CL[facility]ICAL LIAISON FOR [facility], , WHO CHECKED WITH THE HALFWAY AND WAS ADVISED THAT THE HALFWAY IS REPORTING HAVING NOT RECEIVED THE DISCHARGE ORDER. JANIS EXPLAINED THAT IT WAS INCLUDED IN FAX TO KEEGAN YESTERDAY AND IS GENERALLY INCLUDED IN THE DISCHARGE PACKET SENT TO THE HALFWAY; THE DISCHARGE ORDER STATES FOR PT TO "[facility]UME [facility]". KEEGAN ASKED FOR THIS ORDER TO BE FAXED TO [facility], . CM FAXED THE DISCHARGE ORDER TO THE [facility]. CM CALLED JASON SERVIN, , NOTIFIED OF ABOVE. CARRIE BALDERAS, CASE MANAGEMENT
== END 2017-02-07 19:19 | DRG 187 ==
LOC: D.ER 15:29 → D.M2 19:12
PROVIDERS: Internal Medicine Nephrology; Physician Assistant; Specialist; ADMIT Family Medicine
PROC: 0W9B3ZZ Drainage of Left Pleural Cavity, Percutaneous Approach (ICD-10-PCS; principal; 2017-02-02 11:18)
DX: J90 Pleural effusion, not elsewhere classified (principal); N18.4 Chronic kidney disease, stage 4 (severe); N39.0 Urinary tract infection, site not specified; E11.22 Type 2 diabetes mellitus with diabetic chronic kidney disease; I12.9 Hypertensive chronic kidney disease with stage 1 through stage 4 chronic kidney disease, or unspecified chronic kidney disease; F41.9 Anxiety disorder, unspecified; J98.4 Other disorders of lung; I25.10 Atherosclerotic heart disease of native coronary artery without angina pectoris; Z86.73 Personal history of transient ischemic attack (TIA), and cerebral infarction without residual deficits; K21.9 Gastro-esophageal reflux disease without esophagitis; D64.9 Anemia, unspecified

== ENCOUNTER 2017-03-27 10:39 | Outpatient (CLI) | payer MEDICARE ==
[~2017-03-27] VITALS: Ht 167.6 cm; Wt 94.1 kg
[~2017-03-27 10:39] MED LIST: ALBUTEROL2.5 MG/3 M INH; FUROSEMIDE20 MG PO
[2017-03-27] MEDS ORDERED: REMERON15 MG PO (12:37)
[2017-03-27] MEDS ORDERED: ALDACTONE25 MG PO (12:37)
[2017-03-27] MEDS ORDERED: NOVOLOG100 U/M1 SC (12:38)
[2017-03-27] MEDS ORDERED: PRINIVIL20 MG PO (12:38)
[2017-03-27] MEDS ORDERED: FUROSEMIDE40 MG PO (12:38)
[2017-03-27] MEDS ORDERED: FERROUS SULFAT325 MG PO (12:39)
[2017-03-27] MEDS ORDERED: CARDIZEM LA120 MG PO (12:39)
[2017-03-27] MEDS ORDERED: SYMBICORT 16010.2 GM INH (12:40)
[2017-03-27] MEDS ORDERED: LOPRESSOR25 MG PO (12:40)
[2017-03-27] MEDS ORDERED: ACETAMINOPHEN500 M1 PO (12:41)
[2017-03-27] MEDS ORDERED: CLARITIN 10 MG10 MG PO (12:41)
[2017-03-27] MEDS ORDERED: SINGULAIR10 MG PO (12:41)
[2017-03-27] MEDS ORDERED: MIRALAX17 GM PO (12:42)
[2017-03-27] MEDS ORDERED: DULCOLAX10 MG/SUPP RC (12:42)
[2017-03-27] MEDS ORDERED: VITAMIN B-1000 MCG/M IM (12:43)
[2017-03-27 13:02] VITALS: BP 166/52; Ht 167.6 cm; Wt 94.1 kg
[2017-03-27 14:25] LABS: BASOPHILS 0.2 % (0-2); EOSINOPHILS 3.8 % (0-7); IMMATURE GRANULOCYTES 0.5 % (0-5); LYMPHOCYTES 16.9 % (15-50); MCH 29.1 pg (26.0-34.0); MCHC 30.3 g/dL (31.0-37.0); MCV 95.9 fL (80.0-100.0); MEAN PLATELET VOLUME 9.3 fL (7.4-10.4); NEUTROPHILS 74.6 % (40-80); PLATELET COUNT 231 10x3/uL (130-400); RBC 3.44 10x6/uL (4.00-5.40); RDW 13.8 % (11.5-14.5); WBC 6.5 10x3/uL (4.8-10.8)
[2017-03-27 14:40] LABS: INR 1.07 (0.85-1.17); PROTIME 13.8 SECONDS (11.6-15.0)
[2017-03-27 14:41] LABS: APTT 28.4 SECONDS (22.8-39.4)
[2017-03-27 14:50] LABS: ANION GAP 14.3 mmol/L (8-16); CALCIUM 8.6 mg/dL (8.5-10.1); CARBON DIOXIDE 34.8 mmol/L (21.0-32.0); CREATININE - SERUM 1.5 mg/dL (0.6-1.3); POTASSIUM - SERUM 4.1 mmol/L (3.5-5.1)
--- NOTE | 2017-03-27 17:43 | NUR ---
8804 SEE POST PROCEDURE CHECKLIST FOR VITAL SIGNS.
[2017-03-27 20:28] LABS: PROTEIN - BODY FLUID 3.6 G/DL
== END 2017-03-27 17:30 | disposition home or self-care (01) ==
LOC: D.OPS 10:39 → D.CT 13:00 → D.OPS 13:00
PROVIDERS: General Practice
DX: J90 Pleural effusion, not elsewhere classified (principal); I12.9 Hypertensive chronic kidney disease with stage 1 through stage 4 chronic kidney disease, or unspecified chronic kidney disease; N18.9 Chronic kidney disease, unspecified; Z01.812 Encounter for preprocedural laboratory examination

== ENCOUNTER 2018-03-02 16:20 | Inpatient (IN) | payer MEDICARE ==
[~2018-03-02] VITALS: Ht 167.6 cm; Wt 89.5 kg
--- NOTE | ~2018-03-02 | PN ---
PATIENT:MIKAYLA GALEANA MEDICAL RECORD: [id number] LOCATION:[facility] D.210 ADMISSION DATE: 03/02/18 PROGRESS NOTE DATE OF SERVICE: 03/08/2018 SUBJECTIVE: This 87-year-old female, who was admitted for increasing shortness of breath. She was noted to have bilateral infiltrates and pleural effusion. The patient complains of shortness of breath still. There is no sputum production. There is no fever. Has hazy appearance in the left lower lobe. PHYSICAL EXAMINATION: GENERAL: Reveals an elderly female, who is in no acute distress. VITAL SIGNS: Temperature 100.2, heart rate of 62, respiratory rate of 24, blood pressure 101/35. SHEENT: Unremarkable. NECK: Supple. CHEST: Some mild crackles on coughing. No accessory muscle use. CARDIAC: Showed no jugular venous distention, murmur, or gallops. ABDOMEN: Benign. EXTREMITIES: Showed no clubbing, cyanosis, or edema. LABORATORY DATA: Lab exam showed white count of 5.3, hemoglobin 8.8. Chemistry is remarkable for creatinine of 2.2, BUN of 65, potassium is 5.1. ASSESSMENT: 1. Pneumonia. 2. Chronic lung disease. 3. Chronic kidney disease. 4. History of stroke. 5. Edema, rule out congestive heart failure. The patient may need echocardiogram for assessment. 6. Anemia, probably from chronic disease. PLAN: 1. Echocardiogram. 2. Trial of steroids if there is no cardiac etiology. 3. Continue DVT prophylaxis. TRANSINT:[id number] Voice Confirmation ID: [id number] DOCUMENT ID: [id number] TEDDY MOY at 1542 CC: [id number] DICTATION DATE: 03/08/18 1735 BAND AND CUFF CUTTER: 03/08/182023 ADM IN [place] [id number] [place] [address]
--- NOTE | ~2018-03-02 | CN ---
PATIENT NAME:MIKAYLA GALEANA MEDICAL RECORD: [id number] : 34 LOCATION:[facility] D.2102 ADMIT DATE: 03/02/18 ACCOUNT: [id number] CONSULTING PHYSICIAN: TABATHA BRODERICK MD REFERRING PHYSICIAN: AB MORALES MD DATE OF CONSULTATION: HISTORY OF PRESENT ILLNESS: An 87-year-old female with a history of hypertension, hyperlipidemia, status post CVA, transferred from [facility] with increasing shortness of breath, getting worse over the past 2-3 weeks by report. She was transferred here for possible CHF. Echocardiographic study done during this hospitalization shows normal LV function. Initially, she does have a pleural effusion on the left side, which abates typical for cardiomyopathy. We are asked to see her concerning her cardiovascular status. PAST MEDICAL HISTORY: Includes: 1. History of cerebrovascular disease. 2. Hypertension. 3. Hyperlipidemia. MEDICATIONS UPON TRANSFER: Include Lasix 40 every day, potassium supplementation, Zoloft 50 q.h.s., metoprolol 25 b.i.d., diltiazem 120 every day, Plavix 75 every day, Proventil 1 puff t.i.d. ALLERGIES: PENICILLIN, IBUPROFEN, KEFLEX, BACTRIM, TERAZOSIN. SOCIAL HISTORY: Lives in the [place] area. She is a nonsmoker, nondrinker. Good family support. REVIEW OF SYSTEMS: The patient reports easy bruising but reports no swollen glands. The patient reports no fever, no night sweats, no significant weight gain, no significant weight loss. No significant exercise tolerance. The patient reports no dry eyes, no irritation, no vision change. Patient reports no difficulty hearing and no ear pain. Patient reports no frequent nose bleeds or nose and sinus problems. Patient reports on arm pain on exertion. No shortness of breath while lying down. No history of heart murmur. Patient reports no cough, no wheezing or coughing up blood. Patient reports no abdominal pain, no vomiting. Normal appetite. No diarrhea and not vomiting blood. No nausea and no constipation. Patient reports no incontinence. No difficulty urinating. No hematuria. No increased frequency. Patient reports no muscle aches. No weakness, no arthralgias, no back pain. No swelling of the extremities. Patient reports no abnormal mole, no jaundice, no rashes. Reports no loss of consciousness. No weakness and no numbness. No seizures, dizziness, or headaches. The patient reports no depression, no sleep disturbance, feeling safe in a relationship and no alcohol abuse. Patient reports on fatigue. Reports no runny nose or sinus pressure. No itching, no hives, and no frequent sneezing. PHYSICAL EXAMINATION: GENERAL: Pleasant female in no acute distress. VITAL SIGNS: Blood pressure 142/46, pulse 79 and regular. HEENT: Normocephalic, atraumatic. NECK: No bruits noted. HEART: Regular. A II/ systolic ejection murmur. LUNGS: Diminished breath sounds on the left. CONSULT REPORT [id number] LISSETTMIKAYLA ABDOMEN: Soft, nontender. EXTREMITIES: Pulses are 2+. There is no edema. IMPRESSION: Marked dyspnea. LV function is normal. Blood pressure fairly well controlled. Given pleural effusion on the left, this will be somewhat atypical for a myopathic process. Agree with current management. TRANSINT:[id number] Voice Confirmation ID: [id number] DOCUMENT ID: [id number] TABATHA BRODERICK MD at 1254 CC: [id number] DICTATION DATE: 03/06/18 1500 RELIGION DEPARTMENT CHAIR: 03/06/18 1523 ADM IN [facility] [address] [place] [address]
--- NOTE | ~2018-03-02 | PN ---
PATIENT:MIKAYLA GALEANA MEDICAL RECORD: [id number] LOCATION:[facility] D.210 ADMISSION DATE: 03/02/18 PROGRESS NOTE DATE OF SERVICE: 03/09/2018 SUBJECTIVE: This is an 87-year-old female who has had history of chronic lung disease. The patient was admitted with increasing shortness of breath, acute respiratory failure with hypercapnia, and hypoxia. The patient was placed on BiPAP. The patient did well. She had repair pleural effusion, which was tapped. At this point, the patient complained of shortness of breath. She had blood gases obtained and she was noted to have acute respiratory failure with hypercapnia and was placed back on BiPAP. The patient is doing well on BiPAP now. There is no fever or chills. There is no chest pain. The patient is a lifelong smoker and currently smokes. PHYSICAL EXAMINATION: GENERAL: Reveals an elderly female patient, in no acute distress. VITAL SIGNS: Temperature 98.8, heart rate of 64, respiratory rate of 18, and saturation 99%. SHEENT: The patient is wearing a mask. NECK: Supple. CHEST: Shows mild crackles bilaterally. CARDIAC: Shows no jugular venous distention, murmur, or gallop. ABDOMEN: Benign with no tenderness or distention. EXTREMITIES: Show no clubbing, cyanosis, or edema. LABORATORY DATA: Showed white count of 5.6, hemoglobin 9.1, and platelet count is 142,000. Chemistry is remarkable for potassium 5, creatinine is 2.3, BUN is 58. Arterial blood gas; pH 7.35, pCO2 of 71, and pO2 of 136. ASSESSMENT: 1. Acute respiratory failure with hypercapnia. The patient is requiring BiPAP. She may need BiPAP at home. 2. Chronic obstructive pulmonary disease. The patient is on bronchodilators. We will add systemic steroids with Solu-Medrol. 3. Acute kidney injury. We will obtain reports of echocardiogram to see if the patient has congestive heart failure, left ventricular dysfunction. PLAN: 1. BiPAP. 2. Bronchodilator and Solu-Medrol. 3. Check report of echocardiogram. TRANSINT:[id number] Voice Confirmation ID: [id number] DOCUMENT ID: [id number] PROGRESS NOTE [id number] MIKAYLA GALEANA TEDDY MOY at 6375 CC: [id number] DICTATION DATE: 03/09/18 1700 HAND WORKER: 03/09/182000 ADM IN [facility] [address] [place] [id number]
--- NOTE | ~2018-03-02 | PN ---
PATIENT:MIKAYLA GALEANA MEDICAL RECORD: [id number] LOCATION:D. D.210 ADMISSION DATE: 03/02/18 PROGRESS NOTE DATE OF SERVICE: 03/11/2018 This is an 87-year-old female with a history of COPD. The patient was admitted with acute respiratory failure with hypoxia and hypercapnia. The patient was found to have bilateral infiltrates as well as right pleural effusion. The patient had thoracentesis but continued to have shortness of breath. The patient was restarted back on her BiPAP and also was given Solu-Medrol. The patient has been doing well. She states that her breathing is much improved. There is no fever or chills. There is no sputum production. PHYSICAL EXAMINATION: VITAL SIGNS: Physical exam reveals a temperature 98.4, heart rate of 67, respiratory rate of 17, blood pressure 138/42, saturations 97%. SHEENT: Normocephalic. Pupils equal and reactive. Mouth is clear and normal and moist. NECK: Supple. There is adenopathy. Trachea is midline. PULMONARY: Clear with good airflow bilaterally. There are no crackles, there are no wheezes. HEART: Exam shows no jugular venous distention, no murmur or gallops. ABDOMEN: Benign, without any tenderness, masses or distention. EXTREMITIES: There is no clubbing, cyanosis or edema. LABORATORY DATA: Showed white count of 7.1, hemoglobin 8.6, and platelet count is 160,000. Chemistry is remarkable for creatinine of 2.4, BUN of 66. Chest x-ray showed bilateral pleural margins are clear. Central pulmonary vasculature is very stable. ASSESSMENT: 1. Acute respiratory failure with hypercapnia and hypoxia. The patient improved on steroids as well as BiPAP and bronchodilators. We will change BiPAP at night and as needed during the daytime. Solu-Medrol also will be tapered. 2. Chronic obstructive pulmonary disease. Continue bronchodilators. 3. Pleural effusion, resolved with thoracentesis. 4. Chronic kidney disease, stage IV. PLAN: 1. Echocardiogram. 2. BiPAP at night and p.r.n. during the daytime. 3. Taper steroids. 4. Continue bronchodilators. 5. Continue heparin subq for DVT prophylaxis. TRANSINT:[id number] Voice Confirmation ID: [id number] DOCUMENT ID: [id number] PROGRESS NOTE [id number] LISSETT,VIRTEDDY RAPP at 1307 CC: [id number] DICTATION DATE: 03/11/18 1700 PERSONAL FITNESS TRAINER: 03/12/18 0056 DIS IN 03/14/18 [facility] [address] [place] [address]
--- NOTE | ~2018-03-02 | CN ---
PATIENT NAME:MIKAYLA GALEANA MEDICAL RECORD: [id number] : 34 LOCATION:[facility] D.2102 ADMIT DATE: 03/02/18 ACCOUNT: [id number] CONSULTING PHYSICIAN: TEDDY MOY REFERRING PHYSICIAN: AB MORALES MD DATE OF CONSULTATION: 03/06/2018 HISTORY OF PRESENT ILLNESS: This is an 87-year-old female who has had a history of hypertension, coronary artery disease, and peripheral vascular disease. She also had a CVA and weakness in 2005. She believes that she has had asthma since childhood and other family members had asthma. Asthma was during certain seasons, in the spring time. Has had increasing shortness of breath and chest tightness. She has not had any sputum production or coughing. Some occasional wheeze. The patient had a previous echocardiogram, which showed normal left ventricular ejection fraction. No diastolic dysfunction or any suggestion of valvular disease. The patient denies any chest pain, orthopnea, PND. PAST MEDICAL HISTORY: As in the present illness. The patient also has COPD, pneumonia, has been on oxygen at home at 2 liters per minute. PAST SURGICAL HISTORY: Includes hysterectomy and thoracentesis in the past. ALLERGIES: INCLUDE PENICILLIN, CEPHALOSPORIN, IBUPROFEN, SULFA, TERAZOSIN, AND TRIMETHOPRIM. HOME MEDICATIONS: Include, albuterol rescue inhaler q. 4 hours p.r.n., Zoloft 50 mg at bedtime, Plavix 75 mg daily, Lasix 40 mg daily, Cardizem [place] 120 mg daily, and Lopressor 25 mg b.i.d. FAMILY HISTORY: Asthma. SOCIAL HISTORY: The patient smokes currently, she has been smoking most of her life. There is no alcohol, no recreational drugs. REVIEW OF SYSTEMS: GENERAL: The patient has been weak. There is no fever or chills. CARDIOPULMONARY: There is no orthopnea, PND or chest pain. GASTROINTESTINAL: There is no nausea, vomiting or abdominal pain. GENITOURINARY: There is no frequency or dysuria. MUSCULOSKELETAL: The patient has decreased range of motion. PHYSICAL EXAMINATION: GENERAL: Physical examination reveals well-developed, well-nourished elderly female who is in no acute distress, on BiPAP. VITAL SIGNS: Temperature 97.5, heart rate of 66, respiratory rate of 20, blood pressure 135/54, saturation 98%. SHEENT: Unremarkable. Nasal passages look moist. There is no obstruction. NECK: Supple. CHEST: Exam shows some mild crackles. Poor airflow and coughing. There is no chest wall tenderness. HEART: Shows no jugular venous distention, murmur or gallop. ABDOMEN: Benign. There is no tenderness. EXTREMITIES: No clubbing, cyanosis or edema. LABORATORY DATA: White count is 95.8, hemoglobin 9.9, hemoglobin 9.5, and CONSULT REPORT [id number] MIKAYLA GALEANA platelet count 152,000. Arterial blood gases pH 7.44, pCO2 of 64 and pO2 of 50 on 2 liters. Chemistry: Sodium is 141, potassium 4.5, CO2 is 41, and creatinine is 1.8. Chest x-ray showed cardiomediastinal silhouette is enlarged. There is mild interstitial prominence in the lungs, left greater than right, basilar airspace opacity. Moderate size left pleural effusion, no pneumothorax. IMPRESSION: 1. Large left pleural effusion, etiology is unknown. The patient may need thoracentesis. 2. Pneumonia. She will need antibiotics. 3. Acute respiratory failure with hypercapnia and hypoxia. The patient has a history of asthma and is a current smoker. Probably in addition to asthma there is chronic obstructive pulmonary disease. The patient will need a BiPAP to improve gas exchange and CO2 retention. 4. Hypertension. RECOMMENDATIONS: 1. BiPAP and repeat blood gases in the morning. 2. Thoracentesis, left lung. 3. Empiric antibiotics with bronchodilators. 4. Deep venous thrombosis prophylaxis per pharmacologic care. Time spent is 50 minutes. TRANSINT:[id number] Voice Confirmation ID: [id number] DOCUMENT ID: [id number] TEDDY MOY at 0824 CC: [id number] DICTATION DATE: 03/06/181926 ENERGY EFFICIENCY FINANCE MANAGER: 03/07/18 0043 ADM IN [place] [id number] [place] [address]
--- NOTE | ~2018-03-02 | PN ---
PATIENT:MIKAYLA GALEANA MEDICAL RECORD: [id number] LOCATION:D. D.210 ADMISSION DATE: 03/02/18 PROGRESS NOTE DATE OF SERVICE: 03/10/2018 This is an 87-year-old female who has a history of chronic obstructive pulmonary disease. The patient was admitted with shortness of breath and acute respiratory failure with hypercapnia and hypoxia. She was also noted to have a right pleural effusion. Thoracentesis was done. The patient was placed on BiPAP with improvement. She had blood gases done yesterday showed recurrent hypercapnia and was placed again on BiPAP. She was started on Solu-Medrol IV steroids. The patient feels better this morning on BiPAP. There is no fever or chills. There is no chest pain. PHYSICAL EXAMINATION: GENERAL: Physical exam reveals an elderly female who is in no acute distress. VITAL SIGNS: Temperature 98.4, heart rate of 75, respiratory rate of 17, blood pressure 156/73, saturation 100%. SHEENT: Unremarkable, the patient is normocephalic. Pupils are equal and reactive. NECK: Supple. There is no adenopathy. Trachea is midline without thyromegaly. No stridor. CHEST: Exam showed basilar crackles, otherwise good flow bilaterally. HEART: Exam shows no jugular venous distention, no murmur or gallops. ABDOMEN: Benign. There is no tenderness and there is no distention. EXTREMITIES: No clubbing, cyanosis or edema. LABORATORY DATA: White count 7.0, hemoglobin 9.3, platelet count is 160,000. Chemistry showed potassium of 3.2, sodium is 141. Creatinine is 2.2, BUN is 63. ASSESSMENT: 1. Acute respiratory failure with hypercapnia and hypoxia, currently on BiPAP. 2. Acute kidney injury, etiology unknown. 3. Anemia probably secondary to malignant disease. 4. Chronic obstructive pulmonary disease. PLAN: 1. BiPAP. Check blood gas in the morning. 2. If symptom is improved, taper steroids. 3. Deep venous thrombosis prophylaxis with Lovenox. With renal failure adjustment. TRANSINT:[id number] Voice Confirmation ID: [id number] DOCUMENT ID: [id number] PROGRESS NOTE [id number] MIKAYLA GALEANA TEDDY MOY at 1307 CC: [id number] DICTATION DATE: 03/10/18 1627 FLEET TECHNICIAN: 03/11/18 0307 DIS IN 03/14/18 [place] [id number] [place] [address]
--- NOTE | ~2018-03-02 | EC ---
PATIENT:MIKAYLA GALEANA DATE OF SERVICE: 03/02/18 SEX: F MEDICAL RECORD: [id number] DATE OF : 34 LOCATION:D.M2 D.210 AGE OF PATIENT: 87 ADMISSION DATE: 03/02/18 REFERRING PHYSICIAN: INTERPRETING PHYSICIAN: TABATHA BRODERICK MD ECHOCARDIOGRAM REPORT ECHO CHARGES 4 ECHO COMPLETE Date: 03/03 CLINICAL DIAGNOSIS: CHF ECHOCARDIOGRAPHIC MEASUREMENTS (adult normal given) AC root (d.<3.7cm) 3.3 cm LV Septum d (<1.2 cm> 1.8 cm Valve Excursion 2.0 cm LV Septum (systole) 2.0 cm Left Atria (s.<4.0cm> 3.5 cm LVPW d(<1.2cm) 1.6 cm RV (d.<2.3cm) 4.3 cm LVPW (sytole) 1.9 cm LV diastole(<5.6CM) 4.9 cm MV E-F(>70mm/sec) cm LV systole 3.6 cm LVOT Diameter 2.2 cm MV exc.(>10mm) 1.3 cm Est.ejection fraction (50-75%) % DOPPLER: LVIT cm/sec A 107 cm/sec E 95.0 cm/sec LA cm/sec RVSP 19 mmHg LVOT 132 cm/sec AOP1/2T m/s Asc. Ao 159 cm/sec RVOT 83 cm/sec RA cm/sec PA 104 cm/sec AV Gradient Peak 10.17mmHg AV Mean 5.89 mmHg AV Area 3.1 cm MV Gradient Peak 8.62 mmHg MV Mean 3.04 mmHg MV Area cm COMMENTS: Garage Laborer: 2 MARVEL VO Chemistry Department Chair: 3 Dr. Taylor TAPE# PACS Pericardial Effusion N DATE OF SERVICE: Adequate 2D echo, color flow, spectral Doppler, M-mode Mild LVH. LV internal dimension is normal. Wall motion normal. EF is greater than or equal to 65%. Aortic valve is tricuspid. No evidence of stenosis by Doppler interrogation. Left atrium normal at 3.5 cm. Mitral valve showed no prolapse. Trace MR. Right-sided chambers normal. Trace TR. TRANSINT:[id number] Voice Confirmation ID: [id number] DOCUMENT ID: [id number] ECHOCARDIOGRAM REPORT [id number] MIKAYLA GALEANA TABATHA BRODERICK MD at 1117 CC: [id number] DICTATION DATE: 03/03/18 1644 SAMPLE SAWYER: 03/04/18 0121 ADM IN [place] [id number] [place] [id number]
[~2018-03-02 16:20] MED LIST changes: +ACETAMINOPHEN500 M1 PO; +ALDACTONE25 MG PO; +CARDIZEM LA120 MG PO; +CLARITIN 10 MG10 MG PO; +DULCOLAX10 MG/SUPP RC; +FERROUS SULFAT325 MG PO; +FUROSEMIDE40 MG PO; +LOPRESSOR25 MG PO; +MIRALAX17 GM PO; +NOVOLOG100 U/M1 SC; +PRINIVIL20 MG PO; +REMERON15 MG PO; +SINGULAIR10 MG PO; +SYMBICORT 16010.2 GM INH; +VITAMIN B-1000 MCG/M IM
[2018-03-02 16:58] VITALS: BP 150/90; BMI 33.9
[2018-03-02] MEDS ORDERED: ZOLOFT50 MG PO (17:17)
[2018-03-02] MEDS ORDERED: PLAVIX75 MG PO (17:17)
[2018-03-02] MEDS ORDERED: K-DUR20 MEQ PO (17:19)
[2018-03-02 20:32] VITALS: BP 174/70
[2018-03-02 21:51] LABS: APPEARANCE CLEAR (CLEAR); BILIRUBIN NEGATIVE (NEGATIVE); COLOR YELLOW (YELLOW); GLUCOSE NEGATIVE (NEGATIVE); KETONE NEGATIVE (NEGATIVE); NITRITE NEGATIVE (NEGATIVE); PROTEIN 1+ mg/dL (NEGATIVE); UROBILINOGEN NORMAL (NORMAL)
[2018-03-02 21:52] LABS: RED CELLS - URINE 0-5 /hpf (0-5)
[2018-03-02 21:53] LABS: BACTERIA FEW /hpf (NONE SEEN); EPITHELIAL CELLS 0-5 /hpf (0-5)
[2018-03-03 00:19] VITALS: BP 151/56
[2018-03-03 04:44] VITALS: BP 150/64
[2018-03-03 06:10] LABS: BASOPHILS 0.2 % (0-2); EOSINOPHILS 1.1 % (0-7); HEMATOCRIT 32.6 % (36.0-48.0); HEMOGLOBIN 10.4 g/dL (12-16); IMMATURE GRANULOCYTES 0.6 % (0-5); LYMPHOCYTES 18.3 % (15-50); MCH 30.1 pg (26.0-34.0); MCHC 31.9 g/dL (31.0-37.0); MCV 94.5 fL (80.0-100.0); MEAN PLATELET VOLUME 9.5 fL (7.4-10.4); MONOCYTES 7.2 % (2-11); NEUTROPHILS 72.6 % (40-80); PLATELET COUNT 239 10x3/uL (130-400); RBC 3.45 10x6/uL (4.00-5.40); RDW 13.3 % (11.5-14.5); WBC 6.4 10x3/uL (4.8-10.8)
[2018-03-03 06:34] LABS: ALBUMIN 2.8 g/dL (3.4-5.0); ANION GAP 4.7 mmol/L (8-16); BILIRUBIN - TOTAL 0.43 mg/dL (0.2-1.3); CALCIUM 8.5 mg/dL (8.5-10.1); CREATININE - SERUM 1.8 mg/dL (0.6-1.3); POTASSIUM - SERUM 4.4 mmol/L (3.5-5.1); PROTEIN - SERUM 6.7 g/dL (6.4-8.2)
[2018-03-03 06:40] LABS: CARBON DIOXIDE 40.7 mmol/L (21.0-32.0)
[2018-03-03 07:58] VITALS: BMI 36.1
[2018-03-03 08:30] VITALS: BP 158/62
[2018-03-03 10:03] VITALS: Ht 167.6 cm; Wt 89.5 kg
[2018-03-03 11:36] VITALS: BP 153/63
[2018-03-03 14:38] LABS: % SATURATION 17 % (15-55); IRON 29 ug/dl (35-150); TOTAL IRON BIND CAPACITY 168 ug/dl (260-445); UNSAT IRON BIND CAPACITY 139 ug/dl (150-375)
[2018-03-03 15:26] VITALS: BP 160/68
[2018-03-03 20:57] VITALS: BP 156/71
[2018-03-04 02:09] VITALS: BP 161/67
[2018-03-04 04:49] LABS: BASOPHILS 0.2 % (0-2); EOSINOPHILS 1.4 % (0-7); HEMATOCRIT 32.8 % (36.0-48.0); HEMOGLOBIN 10.1 g/dL (12-16); IMMATURE GRANULOCYTES 0.6 % (0-5); LYMPHOCYTES 20.5 % (15-50); MCH 29.6 pg (26.0-34.0); MCHC 30.8 g/dL (31.0-37.0); MCV 96.2 fL (80.0-100.0); MEAN PLATELET VOLUME 9.6 fL (7.4-10.4); MONOCYTES 7.2 % (2-11); NEUTROPHILS 70.1 % (40-80); PLATELET COUNT 220 10x3/uL (130-400); RBC 3.41 10x6/uL (4.00-5.40); RDW 13.2 % (11.5-14.5); WBC 6.6 10x3/uL (4.8-10.8)
[2018-03-04 05:35] LABS: ALBUMIN 2.7 g/dL (3.4-5.0); ANION GAP 6.7 mmol/L (8-16); BILIRUBIN - TOTAL 0.38 mg/dL (0.2-1.3); CALCIUM 8.5 mg/dL (8.5-10.1); CARBON DIOXIDE 39.5 mmol/L (21.0-32.0); PROTEIN - SERUM 6.8 g/dL (6.4-8.2)
[2018-03-04 05:36] LABS: POTASSIUM - SERUM 5.2 mmol/L (3.5-5.1)
[2018-03-04 06:26] VITALS: BP 147/62
[2018-03-04 08:23] VITALS: BP 140/61
[2018-03-04 11:41] VITALS: BP 143/58
[2018-03-04 16:11] VITALS: BP 106/61
[2018-03-04 21:07] VITALS: BP 128/47
[2018-03-05 01:16] VITALS: BP 129/49
[2018-03-05 05:10] VITALS: BP 128/72
[2018-03-05 05:38] LABS: BASOPHILS 0.2 % (0-2); EOSINOPHILS 1.6 % (0-7); HEMATOCRIT 30.3 % (36.0-48.0); HEMOGLOBIN 9.4 g/dL (12-16); IMMATURE GRANULOCYTES 0.6 % (0-5); LYMPHOCYTES 16.6 % (15-50); MCH 29.7 pg (26.0-34.0); MCV 95.6 fL (80.0-100.0); MEAN PLATELET VOLUME 9.6 fL (7.4-10.4); MONOCYTES 6.3 % (2-11); NEUTROPHILS 74.7 % (40-80); PLATELET COUNT 188 10x3/uL (130-400); RBC 3.17 10x6/uL (4.00-5.40); WBC 6.3 10x3/uL (4.8-10.8)
[2018-03-05 05:59] LABS: ALBUMIN 2.5 g/dL (3.4-5.0); ANION GAP 4.6 mmol/L (8-16); BILIRUBIN - TOTAL 0.37 mg/dL (0.2-1.3); CALCIUM 8.3 mg/dL (8.5-10.1); POTASSIUM - SERUM 4.5 mmol/L (3.5-5.1); PROTEIN - SERUM 6.4 g/dL (6.4-8.2)
[2018-03-05 06:27] LABS: CARBON DIOXIDE 40.9 mmol/L (21.0-32.0)
[2018-03-05 16:15] VITALS: BP 148/50
[2018-03-06 04:00] VITALS: BP 124/41
[2018-03-06 06:34] LABS: ALBUMIN 2.7 g/dL (3.4-5.0); ANION GAP 6.7 mmol/L (8-16); BILIRUBIN - TOTAL 0.38 mg/dL (0.2-1.3); CALCIUM 8.3 mg/dL (8.5-10.1); CARBON DIOXIDE 39.8 mmol/L (21.0-32.0); CREATININE - SERUM 1.9 mg/dL (0.6-1.3); POTASSIUM - SERUM 4.5 mmol/L (3.5-5.1)
[2018-03-06 06:36] LABS: BASOPHILS 0.2 % (0-2); EOSINOPHILS 1.3 % (0-7); HEMATOCRIT 29.6 % (36.0-48.0); HEMOGLOBIN 9.4 g/dL (12-16); IMMATURE GRANULOCYTES 0.2 % (0-5); LYMPHOCYTES 14.1 % (15-50); MCH 29.8 pg (26.0-34.0); MCHC 31.8 g/dL (31.0-37.0); MEAN PLATELET VOLUME 10.5 fL (7.4-10.4); MONOCYTES 6.6 % (2-11); NEUTROPHILS 77.6 % (40-80); PLATELET COUNT 203 10x3/uL (130-400); RBC 3.15 10x6/uL (4.00-5.40); WBC 6.4 10x3/uL (4.8-10.8)
[2018-03-06 08:11] VITALS: BP 122/42
[2018-03-06 09:17] LABS: FOLATE (FOLIC ACID) - SERUM 14.5 ng/mL (>3.0)
[2018-03-06 11:50] VITALS: BP 142/46
[2018-03-06 15:52] VITALS: BP 135/44
[2018-03-06 16:25] LABS: BASOPHILS 0.1 % (0-2); EOSINOPHILS 1.5 % (0-7); HEMATOCRIT 30.6 % (36.0-48.0); HEMOGLOBIN 9.5 g/dL (12-16); IMMATURE GRANULOCYTES 0.3 % (0-5); LYMPHOCYTES 13.9 % (15-50); MCH 29.2 pg (26.0-34.0); MCV 94.2 fL (80.0-100.0); MEAN PLATELET VOLUME 10.2 fL (7.4-10.4); MONOCYTES 6.8 % (2-11); NEUTROPHILS 77.4 % (40-80); PLATELET COUNT 182 10x3/uL (130-400); RBC 3.25 10x6/uL (4.00-5.40); WBC 6.8 10x3/uL (4.8-10.8)
[2018-03-06 16:48] LABS: ANION GAP 5.1 mmol/L (8-16); CALCIUM 8.3 mg/dL (8.5-10.1); CREATININE - SERUM 1.8 mg/dL (0.6-1.3); POTASSIUM - SERUM 4.5 mmol/L (3.5-5.1)
[2018-03-06 17:03] LABS: CARBON DIOXIDE 41.4 mmol/L (21.0-32.0)
[2018-03-06 20:34] VITALS: BP 142/46
[2018-03-07] VITALS (13 sets, daily range): BP systolic 105–140; BP diastolic 34–55
[2018-03-07 06:22] LABS: BASOPHILS 0.2 % (0-2); HEMATOCRIT 28.7 % (36.0-48.0); HEMOGLOBIN 8.8 g/dL (12-16); IMMATURE GRANULOCYTES 0.3 % (0-5); LYMPHOCYTES 15.9 % (15-50); MCH 29.1 pg (26.0-34.0); MCHC 30.7 g/dL (31.0-37.0); MEAN PLATELET VOLUME 10.2 fL (7.4-10.4); MONOCYTES 6.8 % (2-11); NEUTROPHILS 74.8 % (40-80); PLATELET COUNT 174 10x3/uL (130-400); RBC 3.02 10x6/uL (4.00-5.40); WBC 6.5 10x3/uL (4.8-10.8)
[2018-03-07 06:43] LABS: ALBUMIN 2.7 g/dL (3.4-5.0); BILIRUBIN - TOTAL 0.38 mg/dL (0.2-1.3); CARBON DIOXIDE 39.6 mmol/L (21.0-32.0); POTASSIUM - SERUM 4.6 mmol/L (3.5-5.1); PROTEIN - SERUM 6.5 g/dL (6.4-8.2)
[2018-03-07 08:40] LABS: APTT 32.2 SECONDS (22.8-39.4); INR 1.15 (0.85-1.17); PROTIME 14.2 SECONDS (11.6-15.0)
[2018-03-07 12:58] LABS: CKMB 0.6 U/L (0.0-3.6); CREATINE KINASE 80 UL (21-215); TROPONIN-I 0.018 ng/mL (0.000-0.060)
[2018-03-07 14:27] LABS: % SATURATION 16 % (15-55); IRON 28 ug/dl (35-150); TOTAL IRON BIND CAPACITY 166 ug/dl (260-445); UNSAT IRON BIND CAPACITY 138 ug/dl (150-375)
[2018-03-07 18:26] LABS: CKMB 0.7 U/L (0.0-3.6); CREATINE KINASE 93 UL (21-215); TROPONIN-I < 0.017 ng/mL (0.000-0.060)
[2018-03-07 23:53] LABS: CKMB 0.4 U/L (0.0-3.6); CREATINE KINASE 91 UL (21-215)
[2018-03-08] VITALS (8 sets, daily range): BP systolic 101–112; BP diastolic 35–53
[2018-03-08 10:56] LABS: BASOPHILS 0 % (0-2); EOSINOPHILS 1.2 % (0-7); HEMATOCRIT 29.1 % (36.0-48.0); HEMOGLOBIN 8.8 g/dL (12-16); IMMATURE GRANULOCYTES 0.2 % (0-5); LYMPHOCYTES 12.2 % (15-50); MCH 29.1 pg (26.0-34.0); MCHC 30.2 g/dL (31.0-37.0); MCV 96.4 fL (80.0-100.0); MEAN PLATELET VOLUME 9.8 fL (7.4-10.4); MONOCYTES 6.4 % (2-11); PLATELET COUNT 142 10x3/uL (130-400); RBC 3.02 10x6/uL (4.00-5.40); RDW 13.2 % (11.5-14.5); WBC 5.8 10x3/uL (4.8-10.8)
[2018-03-08 11:20] LABS: ALBUMIN 2.5 g/dL (3.4-5.0); ANION GAP 7.7 mmol/L (8-16); BILIRUBIN - TOTAL 0.37 mg/dL (0.2-1.3); CALCIUM 8.3 mg/dL (8.5-10.1); CARBON DIOXIDE 38.4 mmol/L (21.0-32.0); CREATININE - SERUM 2.2 mg/dL (0.6-1.3); POTASSIUM - SERUM 5.1 mmol/L (3.5-5.1); PROTEIN - SERUM 6.4 g/dL (6.4-8.2)
[2018-03-09 02:11] VITALS: BP 100/35
[2018-03-09 05:51] LABS: BASOPHILS 0 % (0-2); EOSINOPHILS 2.1 % (0-7); HEMATOCRIT 29.9 % (36.0-48.0); HEMOGLOBIN 9.1 g/dL (12-16); IMMATURE GRANULOCYTES 0.2 % (0-5); LYMPHOCYTES 16.9 % (15-50); MCH 29.3 pg (26.0-34.0); MCHC 30.4 g/dL (31.0-37.0); MCV 96.1 fL (80.0-100.0); MEAN PLATELET VOLUME 10.6 fL (7.4-10.4); NEUTROPHILS 72.8 % (40-80); PLATELET COUNT 142 10x3/uL (130-400); RBC 3.11 10x6/uL (4.00-5.40); RDW 13.2 % (11.5-14.5); WBC 5.6 10x3/uL (4.8-10.8)
[2018-03-09 06:28] VITALS: BP 112/98
[2018-03-09 06:33] LABS: ALBUMIN 2.6 g/dL (3.4-5.0); ANION GAP 9.4 mmol/L (8-16); BILIRUBIN - TOTAL 0.42 mg/dL (0.2-1.3); CALCIUM 8.3 mg/dL (8.5-10.1); CARBON DIOXIDE 35.6 mmol/L (21.0-32.0); CREATININE - SERUM 2.3 mg/dL (0.6-1.3); PROTEIN - SERUM 6.6 g/dL (6.4-8.2)
[2018-03-09 07:40] VITALS: BP 108/40
[2018-03-09 11:55] VITALS: BP 110/41
[2018-03-09 15:08] VITALS: BP 109/38
[2018-03-09 17:59] LABS: BASOPHILS 0.1 % (0-2); EOSINOPHILS 2.1 % (0-7); HEMATOCRIT 29.8 % (36.0-48.0); HEMOGLOBIN 9.1 g/dL (12-16); IMMATURE GRANULOCYTES 0.3 % (0-5); LYMPHOCYTES 8.6 % (15-50); MCH 29.2 pg (26.0-34.0); MCHC 30.5 g/dL (31.0-37.0); MCV 95.5 fL (80.0-100.0); MEAN PLATELET VOLUME 10.5 fL (7.4-10.4); MONOCYTES 4.2 % (2-11); NEUTROPHILS 84.7 % (40-80); PLATELET COUNT 160 10x3/uL (130-400); RBC 3.12 10x6/uL (4.00-5.40)
[2018-03-09 18:04] LABS: WBC 7.3 10x3/uL (4.8-10.8)
[2018-03-09 18:32] LABS: MAGNESIUM - SERUM 2.2 mg/dL (1.8-2.4)
[2018-03-09 18:33] LABS: DIGOXIN 0.05 ng/mL (0.90-2.00)
[2018-03-09 21:12] VITALS: BP 143/48
[2018-03-10] VITALS (7 sets, daily range): BP systolic 112–156; BP diastolic 42–73
[2018-03-10 05:27] LABS: ALBUMIN 2.7 g/dL (3.4-5.0); ANION GAP 9.5 mmol/L (8-16); BASOPHILS 0 % (0-2); BILIRUBIN - TOTAL 0.38 mg/dL (0.2-1.3); CALCIUM 8.6 mg/dL (8.5-10.1); CARBON DIOXIDE 35.7 mmol/L (21.0-32.0); CREATININE - SERUM 2.2 mg/dL (0.6-1.3); EOSINOPHILS 0 % (0-7); HEMOGLOBIN 9.3 g/dL (12-16); IMMATURE GRANULOCYTES 0.4 % (0-5); LYMPHOCYTES 5.7 % (15-50); MCH 29.2 pg (26.0-34.0); MEAN PLATELET VOLUME 10.9 fL (7.4-10.4); MONOCYTES 2.4 % (2-11); NEUTROPHILS 91.5 % (40-80); PLATELET COUNT 160 10x3/uL (130-400); POTASSIUM - SERUM 5.2 mmol/L (3.5-5.1); PROTEIN - SERUM 7.2 g/dL (6.4-8.2); RBC 3.19 10x6/uL (4.00-5.40); RDW 12.7 % (11.5-14.5)
[2018-03-11 04:00] VITALS: BP 116/35
[2018-03-11 05:35] LABS: BASOPHILS 0.1 % (0-2); EOSINOPHILS 0.6 % (0-7); HEMATOCRIT 27.9 % (36.0-48.0); HEMOGLOBIN 8.6 g/dL (12-16); IMMATURE GRANULOCYTES 0.3 % (0-5); LYMPHOCYTES 13.4 % (15-50); MCH 29.3 pg (26.0-34.0); MCHC 30.8 g/dL (31.0-37.0); MCV 94.9 fL (80.0-100.0); MEAN PLATELET VOLUME 10.4 fL (7.4-10.4); MONOCYTES 7.8 % (2-11); NEUTROPHILS 77.8 % (40-80); PLATELET COUNT 160 10x3/uL (130-400); RBC 2.94 10x6/uL (4.00-5.40); RDW 12.9 % (11.5-14.5); WBC 7.1 10x3/uL (4.8-10.8)
[2018-03-11 06:25] LABS: ALBUMIN 2.8 g/dL (3.4-5.0); ANION GAP 5.8 mmol/L (8-16); BILIRUBIN - TOTAL 0.37 mg/dL (0.2-1.3); CALCIUM 8.2 mg/dL (8.5-10.1); CARBON DIOXIDE 36.3 mmol/L (21.0-32.0); CREATININE - SERUM 2.4 mg/dL (0.6-1.3); MAGNESIUM - SERUM 2.3 mg/dL (1.8-2.4); PROTEIN - SERUM 6.9 g/dL (6.4-8.2)
[2018-03-11 06:28] LABS: POTASSIUM - SERUM 4.1 mmol/L (3.5-5.1)
[2018-03-11 08:37] VITALS: BP 118/42
[2018-03-11 12:27] VITALS: BP 138/57
[2018-03-11 20:00] VITALS: BP 124/61
[2018-03-12] VITALS: BP 154/55
[2018-03-12 04:00] VITALS: BP 110/59
[2018-03-12 05:07] LABS: BASOPHILS 0 % (0-2); EOSINOPHILS 0 % (0-7); HEMATOCRIT 28.4 % (36.0-48.0); HEMOGLOBIN 8.9 g/dL (12-16); IMMATURE GRANULOCYTES 0.7 % (0-5); LYMPHOCYTES 8.2 % (15-50); MCH 29.5 pg (26.0-34.0); MCHC 31.3 g/dL (31.0-37.0); MEAN PLATELET VOLUME 11.1 fL (7.4-10.4); MONOCYTES 6.1 % (2-11); PLATELET COUNT 171 10x3/uL (130-400); RBC 3.02 10x6/uL (4.00-5.40); WBC 6.1 10x3/uL (4.8-10.8)
[2018-03-12 05:53] LABS: ALBUMIN 2.8 g/dL (3.4-5.0); BILIRUBIN - TOTAL 0.38 mg/dL (0.2-1.3); CALCIUM 7.8 mg/dL (8.5-10.1); CARBON DIOXIDE 35.1 mmol/L (21.0-32.0); CREATININE - SERUM 2.2 mg/dL (0.6-1.3); POTASSIUM - SERUM 4.1 mmol/L (3.5-5.1); PROTEIN - SERUM 6.9 g/dL (6.4-8.2)
[2018-03-12 07:47] LABS: % SATURATION 76 % (15-55); IRON 158 ug/dl (35-150); TOTAL IRON BIND CAPACITY 207 ug/dl (260-445)
[2018-03-12 07:48] LABS: UNSAT IRON BIND CAPACITY 49 ug/dl (150-375)
[2018-03-12 09:39] VITALS: BP 146/59
[2018-03-12 12:32] VITALS: BP 154/61
[2018-03-12 17:05] VITALS: BP 148/60
[2018-03-12 20:36] VITALS: BP 150/60
[2018-03-13 04:59] VITALS: BP 135/52
[2018-03-13 05:59] LABS: BASOPHILS 0.1 % (0-2); EOSINOPHILS 1.2 % (0-7); HEMATOCRIT 29.3 % (36.0-48.0); HEMOGLOBIN 9.3 g/dL (12-16); IMMATURE GRANULOCYTES 0.8 % (0-5); LYMPHOCYTES 19.5 % (15-50); MCH 29.6 pg (26.0-34.0); MCHC 31.7 g/dL (31.0-37.0); MCV 93.3 fL (80.0-100.0); MEAN PLATELET VOLUME 10.8 fL (7.4-10.4); MONOCYTES 6.9 % (2-11); NEUTROPHILS 71.5 % (40-80); PLATELET COUNT 181 10x3/uL (130-400); RBC 3.14 10x6/uL (4.00-5.40); RDW 13.1 % (11.5-14.5)
[2018-03-13 06:04] LABS: WBC 7.7 10x3/uL (4.8-10.8)
[2018-03-13 06:24] LABS: ALBUMIN 2.9 g/dL (3.4-5.0); ANION GAP 8.6 mmol/L (8-16); BILIRUBIN - TOTAL 0.41 mg/dL (0.2-1.3); CALCIUM 8.1 mg/dL (8.5-10.1); CARBON DIOXIDE 37.7 mmol/L (21.0-32.0); PHOSPHOROUS 3.3 mg/dL (2.5-4.9); PROTEIN - SERUM 7.1 g/dL (6.4-8.2)
[2018-03-13 06:26] LABS: POTASSIUM - SERUM 3.3 mmol/L (3.5-5.1)
[2018-03-13 08:27] VITALS: BP 143/48
[2018-03-13 09:19] LABS: FOLATE (FOLIC ACID) - SERUM 14.9 ng/mL (>3.0)
[2018-03-13 12:02] VITALS: BP 150/48
[2018-03-13 20:15] VITALS: BP 152/59
[2018-03-14 05:28] VITALS: BP 149/56
[2018-03-14 05:54] LABS: BASOPHILS 0.1 % (0-2); EOSINOPHILS 1.4 % (0-7); HEMOGLOBIN 9.3 g/dL (12-16); IMMATURE GRANULOCYTES 0.7 % (0-5); LYMPHOCYTES 16.9 % (15-50); MCH 29.5 pg (26.0-34.0); MCHC 32.1 g/dL (31.0-37.0); MCV 92.1 fL (80.0-100.0); MEAN PLATELET VOLUME 10.9 fL (7.4-10.4); MONOCYTES 5.8 % (2-11); NEUTROPHILS 75.1 % (40-80); PLATELET COUNT 207 10x3/uL (130-400); RBC 3.15 10x6/uL (4.00-5.40); WBC 8.4 10x3/uL (4.8-10.8)
[2018-03-14 06:13] LABS: ANION GAP 9.5 mmol/L (8-16); CALCIUM 7.7 mg/dL (8.5-10.1); CARBON DIOXIDE 35.6 mmol/L (21.0-32.0); CREATININE - SERUM 1.8 mg/dL (0.6-1.3); PHOSPHOROUS 3.5 mg/dL (2.5-4.9); POTASSIUM - SERUM 3.1 mmol/L (3.5-5.1)
[2018-03-14 09:12] VITALS: BP 138/47
[2018-03-14 12:08] VITALS: BP 150/95
[2018-03-14] MEDS ORDERED: ZOLOFT50 MG PO (15:32)
[2018-03-14] MEDS ORDERED: HYDRALAZINE HCL25 MG PO (15:32)
[2018-03-14] MEDS ORDERED: PROTONIX40 MG PO (15:33)
[2018-03-14] MEDS ORDERED: PREDNISONE10 MG PO (15:35)
[2018-03-14 16:05] VITALS: BP 149/60
[2018-03-14 20:39] VITALS: BP 127/89
== END 2018-03-14 20:40 | DRG 291 ==
LOC: D.M2 16:20
PROVIDERS: Family Medicine Adult Medicine; General Practice; Internal Medicine; Internal Medicine Interventional Cardiology; Internal Medicine Nephrology
PROC: 0W9B3ZZ Drainage of Left Pleural Cavity, Percutaneous Approach (ICD-10-PCS; principal; 2018-03-07 11:07)
DX: I13.0 Hypertensive heart and chronic kidney disease with heart failure and stage 1 through stage 4 chronic kidney disease, or unspecified chronic kidney disease (principal); I50.33 Acute on chronic diastolic (congestive) heart failure; J96.01 Acute respiratory failure with hypoxia; N18.4 Chronic kidney disease, stage 4 (severe); I69.354 Hemiplegia and hemiparesis following cerebral infarction affecting left non-dominant side; N17.9 Acute kidney failure, unspecified; A04.72 Enterocolitis due to Clostridium difficile, not specified as recurrent; E11.22 Type 2 diabetes mellitus with diabetic chronic kidney disease; J44.9 Chronic obstructive pulmonary disease, unspecified; E78.5 Hyperlipidemia, unspecified; D64.9 Anemia, unspecified; E87.5 Hyperkalemia; I08.1 Rheumatic disorders of both mitral and tricuspid valves; I25.10 Atherosclerotic heart disease of native coronary artery without angina pectoris

== ENCOUNTER → 2019-04-18 12:51 | Outpatient (CLI) | payer MEDICARE ==
[~2019-04-18 12:51] MED LIST changes: +HYDRALAZINE HCL25 MG PO; +K-DUR20 MEQ PO; +PLAVIX75 MG PO; +PREDNISONE10 MG PO; +PROTONIX40 MG PO; +ZOLOFT50 MG PO
== END | disposition home or self-care (01) ==
LOC: D.RT 12:51
PROVIDERS: ATTEND Internal Medicine Pulmonary Disease
DX: J45.909 Unspecified asthma, uncomplicated (principal); J90 Pleural effusion, not elsewhere classified

== ENCOUNTER → 2020-05-05 10:27 | Outpatient (CLI) | payer MEDICARE | END | disposition home or self-care (01) | LOC: D.RT 04-09 11:00 → D.RAD 04-09 11:30 → D.RT 10:00 | PROVIDERS: ATTEND Internal Medicine Pulmonary Disease | DX: J44.9 Chronic obstructive pulmonary disease, unspecified (principal); J90 Pleural effusion, not elsewhere classified ==